=== PATIENT | male | born 1950 | race Asian ===

== ENCOUNTER → 2019-04-26 | Outpatient (CLI) | payer MEDICARE | LOC: M.NUC 11:50 | DX: R10.11 Right upper quadrant pain (principal) ==

== ENCOUNTER 2021-03-15 12:17 | Emergency (ER) | payer OTHER ==
[~2021-03-15] VITALS: Ht 162.6 cm; Wt 70.8 kg
[2021-03-15] MEDS ORDERED: HYDROCODON-ACE1 EAC7 PO (12:50)
[2021-03-15 12:59] VITALS: BP 110/64
== END 2021-03-15 13:00 | disposition home or self-care (01) ==
LOC: M.ERS 12:17
DX: S52.502A Unspecified fracture of the lower end of left radius, initial encounter for closed fracture (principal); S52.615A Nondisplaced fracture of left ulna styloid process, initial encounter for closed fracture; E78.1 Pure hyperglyceridemia; Z98.890 Other specified postprocedural states; W19.XXXA Unspecified fall, initial encounter; Y93.89 Activity, other specified; Y92.89 Other specified places as the place of occurrence of the external cause; Y99.8 Other external cause status